=== PATIENT | male | born 1980 | race Two or more races ===

== ENCOUNTER 2020-04-30 13:28 | Emergency (ER) | payer SELFPAY ==
[~2020-04-30] VITALS: Ht 167.6 cm; Wt 90.9 kg
[2020-04-30] MEDS ORDERED: IV NORMAL SALINE 1000ML BAG 1,000 ML IV ONE (14:00)
[2020-04-30 14:39] LABS: BASO # 0.1 x10^3/uL (0.0-0.2); BASO % 1 % (0-3); EOS # 0.1 x10^3/uL (0.0-0.7); EOS % 1 % (0-3); HEMATOCRIT 46.4 % (39.0-53.0); HEMOGLOBIN 15.6 g/dL (13.0-17.5); LYMPH # 2.3 x10^3/uL (1.0-4.8); LYMPH % 31 % (24-48); MEAN CORPUSCULAR HEMOGLOBIN 28 pg (25-35); MEAN CORPUSCULAR HGB CONC 34 g/dL (31-37); MEAN CORPUSCULAR VOLUME 82 fL (79-100); MONO # 0.5 x10^3/uL (0.0-1.1); MONO % 7 % (0-9); NEUT # 4.4 x10^3/uL (1.8-7.7); NEUT % 61 % (31-73); PLATELET COUNT 255 x10^3/uL (140-400); RED BLOOD COUNT 5.63 x10^6/uL (4.30-5.70); RED CELL DISTRIBUTION WIDTH 13.7 % (11.5-14.5); WHITE BLOOD COUNT 7.4 x10^3/uL (4.0-11.0)
--- NOTE | 2020-04-30 14:49 | PHYS DOC ---
Past Medical History Past Medical History: High Cholesterol, Hypertension, [place] Past Surgical History: Appendectomy Smoking Status: Never Smoker Alcohol Use: Occasionally General Adult EDM: Chief Complaint: NAUSEA/VOMITING/DIARRHA HPI: HPI: 40-year-old male past medical history significant for hypertension and hyperlipidemia, presents the ED with complaints of right shoulder pain, nausea, nonbloody nonbilious vomiting, nonradiating left-sided chest pressure with palpitations, bilateral upper back pain, sxs started this morning. Is worried about his blood pressure and states he had to be admitted for these sxs at in the past year-believes he had a heart attack but reports facial drop and arm weakness at that time. States he takes an aspirin daily, has not been on Plavix or Brilinta. Admits to drinking alcohol last night. No cocaine or meth use. No FH CAD, sudden under 50 or aortic disease. Review of systems: Review of Systems: Review of Systems: Constitutional: Denies fever or chills. [] Eyes: Denies change in visual acuity. [] HENT: Denies nasal congestion or sore throat. [] Respiratory: Denies cough or shortness of breath. [] Cardiovascular: Denies chest pain or edema. [] GI: Denies abdominal pain, nausea, vomiting, bloody stools or diarrhea. [] : Denies dysuria. [] Musculoskeletal: Denies back pain or joint pain. [] Integument: Denies rash. [] Neurologic: Denies headache, focal weakness or sensory changes. [] Endocrine: Denies polyuria or polydipsia. [] Lymphatic: Denies swollen glands. [] Psychiatric: Denies depression or anxiety. [] Heart Score: HEART Score for Chest Pain: HEART Score for Chest Pain Response (Comments) Value History Slighlty/Non-Suspicious 0 ECG Nonspecific Repolarizatio 1 Age < 45 0 Risk Factors 1 or 2 Risk Factors 1 Troponin < Normal Limit 0 Total 2 Risk Factors: Risk Factors: DM, Current or recent (<one month) smoker, HTN, HLP, family history of CAD, obesity. Risk Scores: Score 0 - 3: 2.5% MACE over next 6 weeks - Discharge Home Score 4 - 6: 20.3% MACE over next 6 weeks - Admit for Clinical Observation Score 7 - 10: 72.7% MACE over next 6 weeks - Early Invasive Strategies Current Medications: Current Medications Medications (Trade) Dose Ordered Sig/Trevin Start Time Stop Time Status Last Admin Dose Admin Sodium Chloride 1,000 ml @ 1,000 mls/hr 1X ONCE 04/30/20 14:00 04/30/20 14:59 04/30/20 14:14 1,000 MLS/HR Allergies: Allergies: Allergies Coded Allergies Type Severity Reaction Last Updated Verified No Known Drug Allergies 04/30/20 No Physical Exam: PE: Constitutional: Well developed, well nourished, no acute distress, non-toxic appearance. [] HENT: Normocephalic, atraumatic, bilateral external ears normal, oropharynx moist, no oral exudates, nose normal. [] Eyes: PERRLA, EOMI, conjunctiva normal, no discharge. [] Neck: Normal range of motion, no tenderness, supple, no stridor. [] Cardiovascular:Heart rate regular rhythm, no murmur [] Lungs & Thorax: Bilateral breath sounds clear to auscultation [] Abdomen: Bowel sounds normal, soft, no tenderness, no masses, no pulsatile masses. [] Skin: Warm, dry, no erythema, no rash. [] Back: No tenderness, no CVA tenderness. [] Extremities: No tenderness, no cyanosis, no clubbing, ROM intact, no edema. [] Neurologic: Alert and oriented X 3, normal motor function, normal sensory function, no focal deficits noted. [] Psychologic: Affect normal, judgement normal, mood normal. [] Current Patient Data: Labs: Laboratory Tests Test 04/30/20 14:05 White Blood Count 7.4 x10^3/uL (4.0-11.0) Red Blood Count 5.63 x10^6/uL (4.30-5.70) Hemoglobin 15.6 g/dL (13.0-17.5) Hematocrit 46.4 % (39.0-53.0) Mean Corpuscular Volume 82 fL (79-100) Mean Corpuscular Hemoglobin 28 pg (25-35) Mean Corpuscular Hemoglobin Concent 34 g/dL (31-37) Red Cell Distribution Width 13.7 % (11.5-14.5) Platelet Count 255 x10^3/uL (140-400) Neutrophils (%) (Auto) 61 % (31-73) Lymphocytes (%) (Auto) 31 % (24-48) Monocytes (%) (Auto) 7 % (0-9) Eosinophils (%) (Auto) 1 % (0-3) Basophils (%) (Auto) 1 % (0-3) Neutrophils # (Auto) 4.4 x10^3/uL (1.8-7.7) Lymphocytes # (Auto) 2.3 x10^3/uL (1.0-4.8) Monocytes # (Auto) 0.5 x10^3/uL (0.0-1.1) Eosinophils # (Auto) 0.1 x10^3/uL (0.0-0.7) Basophils # (Auto) 0.1 x10^3/uL (0.0-0.2) Laboratory Tests 04/30/20 14:05 Vital Signs: Vital Signs Date Time Temp Pulse Resp B/P (MAP) Pulse Ox O2 Delivery O2 Flow Rate FiO2 04/30/20 13:30 98.6 115 20 164/98 (120) 100 Room Air 98.6 EKG: EKG: Sinus tachycardia 115 bpm, no axis deviation, normal intervals, T wave inversion lead III, no ST elevations or ST depressions Radiology/Procedures: Radiology/Procedures: IMAGING REPORT Signed PATIENT: JENNY PETERSONACCOUNT: [id number] : 1980 LOCATION: ER AGE: 40 SEX: M EXAM STATUS: REG ER ORD. PHYSICIAN: MONTY SANTOS DO REASON: shoulder pain PROCEDURE: SHOULDER 2+V RIGHT Examination: 3 views of the right shoulder History right shoulder pain COMPARISON: None available. FINDINGS: The humerus head is within the glenoid. There is no acute fracture or dislocation identified. IMPRESSION: No acute osseous findings. Electronically signed by: Olegario Mendoza MD (04/30/2020 3:07 PM) [id number] DICTATED and SIGNED BY: OLEGARIO MENDOZA MD DATE: 04/30/20 1507 IMAGING REPORT Signed PATIENT: JENNY PETERSONACCOUNT: [id number] : 1980 LOCATION: ER AGE: 40 SEX: M EXAM STATUS: PRE ER ORD. PHYSICIAN: MONTY SANTOS DO REASON: n/v/d PROCEDURE: ACUTE ABDOMEN SERIES Examination: Acute abdomen series HISTORY: History of nausea, vomiting, diarrhea COMPARISON: None available FINDINGS: The cardiomediastinal silhouette grossly appears unremarkable. The lungs are clear. No evidence of free air noted under the hemidiaphragm. No evidence of free air under the hemidiaphragm. Paucity of gas in the abdomen limits evaluation of the small bowel. Feces and gas noted in the colon. IMPRESSION: 1. Unremarkable gas pattern. 2. No acute cardiac pulmonary findings. Electronically signed by: Olegario Mendoza MD (04/30/2020 3:00 PM) [id number] DICTATED and SIGNED BY: OLEGARIO MENDOZA MD DATE: 04/30/20 1500 Course & Med Decision Making: Course & Med Decision Making Pertinent Labs and Imaging studies reviewed. (See chart for details) Concern for atraumatic left shoulder, upper back and chest pain -patient is very anxious that his blood pressure is too elevated. Pt gave me permission to s [facility] to transfer center at - rn informed me that patient was admitted in August 2018 for a TIA and followed up outpatient in October 2018 with neurology. There is no documented records of any acute myocardial infarction. Labs show no signs of end organ damage. Patient's chest pain has been present for more than 6 hours and his troponin is negative. D-dimer is within normal limits. Abdominal series x-ray shows no acute process-normal cardiomediastinal silhouette. Repeat blood pressure on my evaluation is 138/84, HR 86. Pt reports he only had 4 refills of his medications, has no routine pmd. RN confirmed his home medications and will prescribe 30-day supply with 1 refill. Will DC home with strict ED return precautions for near syncope, chest pressure, tightness or heaviness or focal neurologic deficits. Encouraged urgent outpatient follow-up with PMD and cardiology. Life-threatening processes were considered but are low suspicion at this time, given history and physical exam. Pt was educated on all prescription medications and adverse effects. All patient's questions were answered and pt was stable at time of discharge. Differential includes acute myocardial infarction, aortic dissection, congestive heart failure, esophageal injury including rupture, surgical abdomen, arrhythmia, cardiomyopathy, myocarditis, pericarditis, peptic ulcer disease, pneumomediastinum, pneumonia, pneumothorax, pulmonary embolus, unstable angina, rib fracture, contusion, pericardial tamponade or effusion, pulmonary contusion I spoken with the patient and her caregivers. I explained the patient's condition, diagnoses and treatment plan based on the information available to me at this time. I have answered the patient and her caregiver's questions and addressed any concerns. The patient and her caregivers have a good understanding of patient's diagnosis, condition and treatment plan as can be expected at this point. Vital signs have been stable. Patient's condition is stable and appropriate for discharge from the emergency department. Patient will pursue further outpatient evaluation with primary care physician or other designated or consulting physician as outlined in the discharge instructions. The patient and/or caregivers are agreeable to this plan of care and follow-up instructions have been explained in detail. The patient and/or caregivers have received these instructions in written form and have expressed an understanding of the discharge instructions. The patient and/or caregivers are aware that any significant change of condition or worsening of symptoms should prompt immediate return to this or the closest emergency department or call to 911. [employer] Disclaimer: [employer] Disclaimer: This electronic medical record was generated, in whole or in part, using a voice recognition dictation system. Departure Departure Impression: Primary Impression: Shoulder pain, right Additional Impression: Hypertension Disposition: 01 HOME, SELF-CARE Condition: STABLE Patient Instructions: Chest Pain (Nonspecific), Hypertension Additional Instructions: Stepan Salcido MD -in 1 week Family Medicine Address: [address] [place] [address] Garrick Perez MD in 1 month Interventional Cardiology Cardiovascular Disease [facility] Address: [address] [place] [address] Scripts Lisinopril (LISINOPRIL) 10 Mg Tablet 1 TAB PO DAILY for 30 Days, #30 TAB 1 Refill Prov: MONTY SANTOS DO 04/30/20 Simvastatin (SIMVASTATIN) 10 Mg Tablet 1 TAB PO DAILY for 30 Days, #30 TAB 1 Refill Prov: MONTY SANTOS DO 04/30/20 Justicifation of Admission Dx: Justifications for Admission: Justification of Admission Dx: N/A MONTY SANTOS DO Apr 30, 2020 14:49
[2020-04-30 14:54] LABS: CREATININE 0.6 mg/dL (0.7-1.3); GFR 149.2; POTASSIUM 4.2 mmol/L (3.5-5.1)
[2020-04-30 15:00] LABS: ALBUMIN 4.2 g/dL (3.4-5.0); ALBUMIN/GLOBULIN RATIO 1.1 (1.0-1.7); MAGNESIUM 2.1 mg/dL (1.8-2.4); TOTAL BILIRUBIN 0.3 mg/dL (0.2-1.0); TOTAL PROTEIN 7.9 g/dL (6.4-8.2)
--- NOTE | 2020-04-30 15:03 | RAD ---
Examination: Acute abdomen series HISTORY: History of nausea, vomiting, diarrhea COMPARISON: None available FINDINGS: The cardiomediastinal silhouette grossly appears unremarkable. The lungs are clear. No evidence of free air noted under the hemidiaphragm. No evidence of free air under the hemidiaphragm. Paucity of gas in the abdomen limits evaluation of the small bowel. Feces and gas noted in the colon. IMPRESSION: 1. Unremarkable gas pattern. 2. No acute cardiac pulmonary findings. Electronically signed by: Olegario Mendoza MD (04/30/2020 3:00 PM) [id number]
--- NOTE | 2020-04-30 15:10 | RAD ---
Examination: 3 views of the right shoulder History right shoulder pain COMPARISON: None available. FINDINGS: The humerus head is within the glenoid. There is no acute fracture or dislocation identified. IMPRESSION: No acute osseous findings. Electronically signed by: Olegario Mendoza MD (04/30/2020 3:07 PM) [id number]
[2020-04-30] MEDS ORDERED: SIMV10TA15 PO (16:36)
[2020-04-30] MEDS ORDERED: LISI10TA2 PO (16:36)
[2020-04-30 17:02] VITALS: BP 129/81
== END 2020-04-30 17:30 | disposition home or self-care (01) ==
LOC: ER 13:28
DX: M25.511 Pain in right shoulder (principal); I10 Essential (primary) hypertension; R11.2 Nausea with vomiting, unspecified; M54.6 Pain in thoracic spine; R07.89 Other chest pain; E78.00 Pure hypercholesterolemia, unspecified; I25.2 Old myocardial infarction; Z90.89 Acquired absence of other organs
CPT/HCPCS: 36415; 73030; 74022; 80053; 83690; 83735; 84484; 85025; 85379; 96360; 96361; 99285; J7030